=== PATIENT | male | born 1995 | race Caucasian/White ===

== ENCOUNTER 2017-04-06 21:08 | Emergency (ER) | payer OTHER ==
[~2017-04-06] VITALS: Ht 182.9 cm; Wt 116.4 kg
[2017-04-06 23:02] LABS: HEMATOCRIT 44.8 % (38.0-50.0); HEMOGLOBIN 15.3 G/DL (12.5-16.6); MCHC 34.2 G/DL (30.0-36.0); PLATELET COUNT 281 K/uL (156-360); RBC DIS.WIDTH-CV 13.2 % (11.8-14.6); RBC DIS.WIDTH-SD 40.2 % (39-53); RED BLOOD COUNT 5.27 M/uL (4.00-5.50); WHITE BLOOD COUNT 9.2 K/uL (4.1-10.2)
[2017-04-06 23:11] LABS: ALBUMIN 4.7 g/dL (3.2-4.8); CHLORIDE 110 mEq/L (99-109); POTASSIUM 3.6 mEq/L (3.7-5.4); SODIUM 140 mEq/L (136-147)
[2017-04-06 23:14] LABS: GLUCOSE 124 mg/dL (70-99); TOTAL PROTEIN 7.5 g/dL (6.4-8.3)
[2017-04-06 23:16] LABS: TOTAL BILIRUBIN 0.4 mg/dL (0.0-1.0)
[2017-04-06 23:17] LABS: ALKALINE PHOSPHATASE 54 IU/L (3-129); SERUM ETHYL ALCOHOL < 10 mg/dL
[2017-04-06 23:18] LABS: CREATININE 1.1 mg/dL (0.6-1.3); GFR ESTIMATE (CALCULATED) > 59 mL/min/ (58.99-99999)
[2017-04-06 23:19] LABS: AST (GOT) 17 IU/L (2-34); UREA NITROGEN (BUN) 9 mg/dL (9-23)
[2017-04-06 23:20] LABS: ALT (GPT) 11 IU/L (3-49)
[2017-04-07 00:21] LABS: AMPHETAMINE NEGATIVE (500 ng/mL); BARBITURATES NEGATIVE (200 ng/mL); BENZODIAZEPINES NEGATIVE (150 ng/mL); BUPRENORPHINE NEGATIVE (10 ng/mL); COCAINE NEGATIVE (150 ng/mL); METHADONE NEGATIVE (200 ng/mL); METHAMPHETAMINE NEGATIVE (500 ng/mL); OPIATES (MORPHINE) NEGATIVE (100 ng/mL); OXYCODONE NEGATIVE (100 ng/mL); PHENCYCLIDINE NEGATIVE (25 ng/mL); PROPOXYPHENE NEGATIVE (300 ng/mL); THC CANNABINOIDS NEGATIVE (50 ng/mL); TRICYCLIC ANTIDEPRESSANTS NEGATIVE (300 ng/mL)
[2017-04-07 02:28] VITALS: BP 193/103
[2017-04-07] MEDS ORDERED: RISPERDAL1 MG PO (21:43)
[2017-04-07] MEDS ORDERED: RISPERDAL2 MG PO (21:44)
[2017-04-07] MEDS ORDERED: ERGOCALCIF50000 UNIT PO (21:44)
== END 2017-04-07 02:29 | disposition home or self-care (01) ==
LOC: EME 21:08
PROVIDERS: Emergency Medicine
DX: F20.9 Schizophrenia, unspecified (principal); F29 Unspecified psychosis not due to a substance or known physiological condition; F32.9 Major depressive disorder, single episode, unspecified; F41.9 Anxiety disorder, unspecified
CPT/HCPCS: 80053; 85027; 90839; 99281; 99285; G0480

== ENCOUNTER 2017-04-07 17:23 | Emergency (ER) | payer OTHER ==
[~2017-04-07] VITALS: Ht 185.4 cm; Wt 107.1 kg
[2017-04-07] MEDS ORDERED: RISPERDAL1 MG PO (21:43)
[2017-04-07] MEDS ORDERED: RISPERDAL2 MG PO (21:44)
[2017-04-07] MEDS ORDERED: ERGOCALCIF50000 UNIT PO (21:44)
[2017-04-07 23:52] LABS: HEMATOCRIT 43.3 % (38.0-50.0); HEMOGLOBIN 14.7 G/DL (12.5-16.6); MCH 28.9 PG (29.0-34.0); MCHC 33.9 G/DL (30.0-36.0); MCV 85.1 FL (86-99); PLATELET COUNT 259 K/uL (156-360); RBC DIS.WIDTH-CV 13.1 % (11.8-14.6); RBC DIS.WIDTH-SD 40.5 % (39-53); RED BLOOD COUNT 5.09 M/uL (4.00-5.50); WHITE BLOOD COUNT 8.4 K/uL (4.1-10.2)
[2017-04-08 00:07] LABS: CHLORIDE 108 mEq/L (99-109); POTASSIUM 3.5 mEq/L (3.7-5.4); SODIUM 138 mEq/L (136-147)
[2017-04-08 00:09] LABS: GLUCOSE 111 mg/dL (70-99)
[2017-04-08 00:12] LABS: SERUM ETHYL ALCOHOL < 10 mg/dL
[2017-04-08 00:13] LABS: CREATININE 0.9 mg/dL (0.6-1.3); GFR ESTIMATE (CALCULATED) > 59 mL/min/ (58.99-99999)
[2017-04-08 00:14] LABS: UREA NITROGEN (BUN) 9 mg/dL (9-23)
[2017-04-08 00:34] LABS: AMPHETAMINE NEGATIVE (500 ng/mL); BARBITURATES NEGATIVE (200 ng/mL); BENZODIAZEPINES NEGATIVE (150 ng/mL); BUPRENORPHINE NEGATIVE (10 ng/mL); COCAINE NEGATIVE (150 ng/mL); METHADONE NEGATIVE (200 ng/mL); METHAMPHETAMINE NEGATIVE (500 ng/mL); OPIATES (MORPHINE) NEGATIVE (100 ng/mL); OXYCODONE NEGATIVE (100 ng/mL); PHENCYCLIDINE NEGATIVE (25 ng/mL); PROPOXYPHENE NEGATIVE (300 ng/mL); THC CANNABINOIDS NEGATIVE (50 ng/mL); TRICYCLIC ANTIDEPRESSANTS NEGATIVE (300 ng/mL)
[2017-04-08 15:00] VITALS: BP 159/95
== END 2017-04-08 15:02 ==
LOC: EME 17:23
PROVIDERS: Emergency Medicine Emergency Medical Services
DX: G47.00 Insomnia, unspecified (principal); R45.851 Suicidal ideations; F41.9 Anxiety disorder, unspecified; F32.9 Major depressive disorder, single episode, unspecified; F20.9 Schizophrenia, unspecified
CPT/HCPCS: 80048; 85027; 90837; G0480

== ENCOUNTER 2017-04-30 15:42 | Emergency (ER) | payer OTHER ==
[~2017-04-30] VITALS: Ht 185.4 cm; Wt 118.4 kg
[~2017-04-30 15:42] MED LIST: ERGOCALCIF50000 UNIT PO; RISPERDAL1 MG PO; RISPERDAL2 MG PO
[2017-04-30 16:18] LABS: BASOPHIL (%) 0.5 % (0-1); EOSINOPHIL (%) 1.2 % (0-5); EOSINOPHIL COUNT 0.1 K/uL (0-0.3); HEMATOCRIT 48.4 % (38.0-50.0); HEMOGLOBIN 16.5 G/DL (12.5-16.6); IMMATURE GRANULOCYTE (%) 0.7 % (0.0-0.7); LYMPHOCYTE (%) 22.9 % (15-42); LYMPHOCYTE COUNT 1.7 K/uL (1.0-2.8); MCHC 34.1 G/DL (30.0-36.0); MCV 85.1 FL (86-99); MONOCYTE (%) 9.1 % (3-12); MONOCYTE COUNT 0.7 K/uL (0-0.8); NEUTROPHIL (%) 65.6 % (45-76); NEUTROPHIL COUNT 4.9 K/uL (1.8-6.4); PLATELET COUNT 268 K/uL (156-360); RBC DIS.WIDTH-CV 12.9 % (11.8-14.6); RBC DIS.WIDTH-SD 39.8 % (39-53); RED BLOOD COUNT 5.69 M/uL (4.00-5.50); WHITE BLOOD COUNT 7.4 K/uL (4.1-10.2)
[2017-04-30] MEDS ORDERED: CHLORPROMAZINE50 MG PO (16:29)
[2017-04-30] MEDS ORDERED: CHLORPROMAZINE100 MG PO (16:29)
[2017-04-30 16:30] LABS: CHLORIDE 105 mEq/L (99-109); POTASSIUM 3.9 mEq/L (3.7-5.4); SODIUM 139 mEq/L (136-147)
[2017-04-30] MEDS ORDERED: DEPAKOTE500 MG PO (16:30)
[2017-04-30 16:31] LABS: GLUCOSE 98 mg/dL (70-99)
[2017-04-30 16:35] LABS: CREATININE 0.9 mg/dL (0.6-1.3); GFR ESTIMATE (CALCULATED) > 59 mL/min/ (58.99-99999); SERUM ETHYL ALCOHOL < 10 mg/dL
[2017-04-30 16:36] LABS: UREA NITROGEN (BUN) 8 mg/dL (9-23)
[2017-04-30 17:05] LABS: AMPHETAMINE NEGATIVE (500 ng/mL); BARBITURATES NEGATIVE (200 ng/mL); BENZODIAZEPINES NEGATIVE (150 ng/mL); BUPRENORPHINE NEGATIVE (10 ng/mL); COCAINE NEGATIVE (150 ng/mL); METHADONE NEGATIVE (200 ng/mL); METHAMPHETAMINE NEGATIVE (500 ng/mL); OPIATES (MORPHINE) NEGATIVE (100 ng/mL); OXYCODONE NEGATIVE (100 ng/mL); PHENCYCLIDINE NEGATIVE (25 ng/mL); PROPOXYPHENE NEGATIVE (300 ng/mL); THC CANNABINOIDS NEGATIVE (50 ng/mL); TRICYCLIC ANTIDEPRESSANTS NEGATIVE (300 ng/mL)
[2017-04-30 22:07] VITALS: BP 139/90
== END 2017-04-30 22:16 ==
LOC: EME 15:42
PROVIDERS: Emergency Medicine
DX: F32.9 Major depressive disorder, single episode, unspecified (principal); F20.9 Schizophrenia, unspecified; F41.9 Anxiety disorder, unspecified
CPT/HCPCS: 80048; 85025; 90837; 99281; 99285; G0480

== ENCOUNTER 2017-05-18 20:01 | Inpatient (IN) | payer OTHER ==
[~2017-05-18] VITALS: Ht 185.4 cm; Wt 120.7 kg
[~2017-05-18 20:01] MED LIST changes: +CHLORPROMAZINE100 MG PO; +CHLORPROMAZINE50 MG PO; +DEPAKOTE500 MG PO
[2017-05-18 20:45] LABS: HEMATOCRIT 44.9 % (38.0-50.0); HEMOGLOBIN 15.2 G/DL (12.5-16.6); MCHC 33.9 G/DL (30.0-36.0); MCV 85.5 FL (86-99); PLATELET COUNT 268 K/uL (156-360); RBC DIS.WIDTH-CV 12.7 % (11.8-14.6); RBC DIS.WIDTH-SD 39.6 % (39-53); RED BLOOD COUNT 5.25 M/uL (4.00-5.50); WHITE BLOOD COUNT 8.7 K/uL (4.1-10.2)
[2017-05-18 21:20] LABS: CHLORIDE 107 mEq/L (99-109); POTASSIUM 3.8 mEq/L (3.7-5.4); SODIUM 142 mEq/L (136-147)
[2017-05-18 21:22] LABS: GLUCOSE 110 mg/dL (70-99)
[2017-05-18 21:25] LABS: SERUM ETHYL ALCOHOL < 10 mg/dL
[2017-05-18 21:26] LABS: CREATININE 0.9 mg/dL (0.6-1.3); GFR ESTIMATE (CALCULATED) > 59 mL/min/ (58.99-99999)
[2017-05-18 21:28] LABS: UREA NITROGEN (BUN) 8 mg/dL (9-23)
[2017-05-18 21:29] LABS: ACETAMINOPHEN (TYLENOL) < 10 mcg/mL (10-30); SALICYLATE < 5.0 MG/DL (15-30)
[2017-05-18 23:36] LABS: VALPROIC ACID (DEPAKOTE) 121.1 MCG/ML (50-100)
[2017-05-19 00:23] LABS: ALBUMIN 4.2 g/dL (3.2-4.8)
[2017-05-19 00:26] LABS: TOTAL PROTEIN 6.4 g/dL (6.4-8.3)
[2017-05-19 00:28] LABS: TOTAL BILIRUBIN 0.2 mg/dL (0.0-1.0)
[2017-05-19 00:29] LABS: ALKALINE PHOSPHATASE 55 IU/L (3-129)
[2017-05-19 00:31] LABS: AST (GOT) 19 IU/L (2-34)
[2017-05-19 00:32] LABS: ALT (GPT) 22 IU/L (3-49); DIRECT BILIRUBIN 0.1 mg/dL (0.0-0.3)
[2017-05-19 01:40] LABS: TROP-I INTERPRETATION NEGATIVE; TROPONIN-I < 0.01 ng/mL (0.0-0.30)
[2017-05-19 01:44] LABS: ALBUMIN 3.8 G/DL (3.2-4.8); CHLORIDE 106 MEQ/L (99-109); POTASSIUM 3.8 MEQ/L (3.7-5.4); SODIUM 141 MEQ/L (136-147); TOTAL BILIRUBIN 0.2 MG/DL (0.0-1.0)
[2017-05-19 01:50] LABS: ALKALINE PHOSPHATASE 47 IU/L (3-129); ALT (GPT) 17 IU/L (3-49); AST (GOT) 16 IU/L (2-34); CREATININE 0.9 MG/DL (0.6-1.3); GFR ESTIMATE (CALCULATED) > 59 mL/min/ (58.99-99999); GLUCOSE 96 mg/dL (70-99); TOTAL PROTEIN 5.7 G/DL (6.4-8.3); UREA NITROGEN (BUN) 7 mg/dL (9-23)
[2017-05-19 03:02] LABS: AMPHETAMINE NEGATIVE (500 ng/mL); BARBITURATES NEGATIVE (200 ng/mL); BENZODIAZEPINES NEGATIVE (150 ng/mL); BUPRENORPHINE NEGATIVE (10 ng/mL); COCAINE NEGATIVE (150 ng/mL); METHADONE NEGATIVE (200 ng/mL); METHAMPHETAMINE NEGATIVE (500 ng/mL); OPIATES (MORPHINE) NEGATIVE (100 ng/mL); OXYCODONE NEGATIVE (100 ng/mL); PHENCYCLIDINE NEGATIVE (25 ng/mL); PROPOXYPHENE NEGATIVE (300 ng/mL); THC CANNABINOIDS NEGATIVE (50 ng/mL); TRICYCLIC ANTIDEPRESSANTS NEGATIVE (300 ng/mL)
[2017-05-19 04:08] VITALS: BP 140/82
[2017-05-19 08:20] VITALS: BP 136/75
[2017-05-19 15:38] VITALS: BP 138/78
[2017-05-20 08:05] VITALS: BP 107/57
[2017-05-20 16:16] VITALS: BP 130/71
[2017-05-21 07:43] VITALS: BP 120/55
[2017-05-21 15:43] VITALS: BP 136/78
[2017-05-22 07:30] VITALS: BP 125/66
[2017-05-22 15:29] VITALS: BP 151/73
[2017-05-22 17:55] VITALS: BP 144/88
[2017-05-23 11:36] VITALS: BP 134/69
[2017-05-23 15:34] VITALS: BP 133/74
[2017-05-24 07:44] VITALS: BP 102/56
[2017-05-24 15:49] VITALS: BP 143/70
[2017-05-25 07:24] VITALS: BP 110/55
[2017-05-25 15:04] VITALS: BP 147/69
[2017-05-26 07:38] VITALS: BP 116/53
[2017-05-26 15:18] VITALS: BP 146/71
[2017-05-27 07:55] VITALS: BP 116/57
[2017-05-27] MEDS ORDERED: DESYREL100 MG PO (09:08)
[2017-05-27] MEDS ORDERED: RISPERDAL2 MG PO (09:08)
[2017-05-27] MEDS ORDERED: BUPROPION XL150 MG PO (09:08)
[2017-05-27] MEDS ORDERED: ABILIFY20 MG PO (09:08)
[2017-05-27] MEDS ORDERED: ABILIFY MAINTE400 MG IM (09:10)
[2017-05-27 15:33] VITALS: BP 162/70
== END 2017-05-27 16:23 | disposition home or self-care (01) | DRG 885 ==
LOC: EME 20:01 → 1WEST 05-19 02:44 → EDOF 05-19 02:44 → ENRESERV 05-19 03:35 → 1WEST 05-19 03:52
PROVIDERS: Emergency Medicine
DX: F32.3 Major depressive disorder, single episode, severe with psychotic features (principal); F84.0 Autistic disorder; F25.1 Schizoaffective disorder, depressive type
CPT/HCPCS: 80048; 80053; 80076; 80164; 82140; 82248; 84484; 85027; 90839; 93005; 97150 GO; 97165 GO; 99202; 99281; 99285; G0480; J7030

== ENCOUNTER 2017-06-02 20:49 | Emergency (ER) | payer OTHER ==
[~2017-06-02] VITALS: Ht 185.4 cm; Wt 120.9 kg
[~2017-06-02 20:49] MED LIST changes: +ABILIFY MAINTE400 MG IM; +ABILIFY20 MG PO; +BUPROPION XL150 MG PO; +DESYREL100 MG PO
[2017-06-02 22:33] VITALS: BP 144/95
== END 2017-06-02 22:33 | disposition home or self-care (01) ==
LOC: EME 20:49
DX: F22 Delusional disorders (principal); F20.9 Schizophrenia, unspecified; F84.0 Autistic disorder
CPT/HCPCS: 80053; 80164; 85027; 90839; 99281; 99283; G0480

== ENCOUNTER 2017-06-09 11:43 | Inpatient (IN) | payer OTHER ==
[~2017-06-09] VITALS: Ht 185.4 cm; Wt 115.3 kg
[2017-06-09 12:08] LABS: BASOPHIL (%) 0.4 % (0-1); EOSINOPHIL (%) 1.3 % (0-5); EOSINOPHIL COUNT 0.1 K/uL (0-0.3); HEMATOCRIT 49.8 % (38.0-50.0); HEMOGLOBIN 16.6 G/DL (12.5-16.6); IMMATURE GRANULOCYTE (%) 0.2 % (0.0-0.7); LYMPHOCYTE (%) 33.3 % (15-42); LYMPHOCYTE COUNT 1.6 K/uL (1.0-2.8); MCH 28.9 PG (29.0-34.0); MCHC 33.3 G/DL (30.0-36.0); MCV 86.6 FL (86-99); MONOCYTE (%) 9.1 % (3-12); MONOCYTE COUNT 0.4 K/uL (0-0.8); NEUTROPHIL (%) 55.7 % (45-76); NEUTROPHIL COUNT 2.6 K/uL (1.8-6.4); PLATELET COUNT 251 K/uL (156-360); RBC DIS.WIDTH-CV 12.9 % (11.8-14.6); RBC DIS.WIDTH-SD 40.4 % (39-53); RED BLOOD COUNT 5.75 M/uL (4.00-5.50); WHITE BLOOD COUNT 4.7 K/uL (4.1-10.2)
[2017-06-09 12:17] LABS: CHLORIDE 107 mEq/L (99-109); POTASSIUM 4.6 mEq/L (3.7-5.4); SODIUM 140 mEq/L (136-147)
[2017-06-09 12:19] LABS: GLUCOSE 94 mg/dL (70-99)
[2017-06-09 12:22] LABS: SERUM ETHYL ALCOHOL < 10 mg/dL
[2017-06-09 12:23] LABS: CREATININE 1.2 mg/dL (0.6-1.3); GFR ESTIMATE (CALCULATED) > 59 mL/min/ (58.99-99999); UREA NITROGEN (BUN) 11 mg/dL (9-23)
[2017-06-09 12:26] LABS: APPEARANCE SL.HAZY ((CLEAR)); BILIRUBIN NEGATIVE; BLOOD NEGATIVE; COLOR YELLOW ((YELLOW)); GLUCOSE (STRIP) NEGATIVE; KETONES NEGATIVE; LEUKOCYTES LARGE; NITRITE NEGATIVE; PROTEIN (STRIP) 30; SPECIFIC GRAVITY 1.025 (1.000-1.030); UROBILINOGEN 0.2 MG/DL (0.2-1.0)
[2017-06-09 12:36] LABS: AMPHETAMINE NEGATIVE (500 ng/mL); BARBITURATES NEGATIVE (200 ng/mL); BENZODIAZEPINES NEGATIVE (150 ng/mL); BUPRENORPHINE NEGATIVE (10 ng/mL); COCAINE NEGATIVE (150 ng/mL); METHADONE NEGATIVE (200 ng/mL); METHAMPHETAMINE NEGATIVE (500 ng/mL); OPIATES (MORPHINE) NEGATIVE (100 ng/mL); OXYCODONE NEGATIVE (100 ng/mL); PHENCYCLIDINE NEGATIVE (25 ng/mL); PROPOXYPHENE NEGATIVE (300 ng/mL); THC CANNABINOIDS NEGATIVE (50 ng/mL); TRICYCLIC ANTIDEPRESSANTS NEGATIVE (300 ng/mL)
[2017-06-09 12:53] LABS: RED BLOOD CELLS NONE SEEN /HPF (0-5)
[2017-06-09 12:54] LABS: BACTERIA RARE /HPF; EPITHELIAL CELLS RARE /HPF; MUCUS 2+ /LPF
[2017-06-09 17:25] VITALS: BP 127/68
[2017-06-09 17:47] VITALS: BP 127/68
[2017-06-10 07:54] VITALS: BP 124/62
[2017-06-10 15:56] VITALS: BP 139/74
[2017-06-11 09:27] VITALS: BP 138/75
[2017-06-11 15:34] VITALS: BP 127/73
[2017-06-12 08:17] VITALS: BP 117/57
[2017-06-12 15:27] VITALS: BP 139/76
[2017-06-13 08:12] VITALS: BP 93/51
[2017-06-13 15:40] VITALS: BP 110/55
[2017-06-14 07:56] VITALS: BP 117/63
[2017-06-14 15:40] VITALS: BP 130/61
[2017-06-15 07:42] VITALS: BP 119/58
[2017-06-15 15:42] VITALS: BP 143/72
[2017-06-16 07:42] VITALS: BP 113/67
[2017-06-16 15:39] VITALS: BP 119/59
[2017-06-17 09:36] VITALS: BP 106/53
[2017-06-17 16:07] VITALS: BP 132/64
[2017-06-18 08:00] VITALS: BP 98/50
[2017-06-18 15:31] VITALS: BP 140/69
[2017-06-19 07:50] VITALS: BP 102/52
[2017-06-19 16:14] VITALS: BP 145/65
[2017-06-20 07:52] VITALS: BP 90/51
[2017-06-20 15:39] VITALS: BP 132/69
[2017-06-21 07:56] VITALS: BP 111/59
[2017-06-21 15:46] VITALS: BP 125/73
[2017-06-22 08:14] VITALS: BP 107/50
[2017-06-22] MEDS ORDERED: TRILEPTAL300 MG PO (09:58)
[2017-06-22] MEDS ORDERED: ZYPREXA20 MG PO (09:58)
== END 2017-06-22 16:39 | disposition home or self-care (01) | DRG 885 ==
LOC: EME 11:43 → 1WEST 15:01 → EDOF 15:01 → ENRESERV 16:00 → 1WEST 16:29
PROVIDERS: Emergency Medicine
DX: F25.0 Schizoaffective disorder, bipolar type (principal); F32.9 Major depressive disorder, single episode, unspecified; F41.9 Anxiety disorder, unspecified; F84.0 Autistic disorder; Z91.5 Personal history of self-harm
CPT/HCPCS: 80048; 81003; 85025; 87086; 90837; 97150 GO; 97165 GO; 99281; 99285; G0480

== ENCOUNTER 2017-08-08 18:25 | Emergency (ER) | payer OTHER ==
[~2017-08-08] VITALS: Ht 185.4 cm; Wt 95.4 kg
[~2017-08-08 18:25] MED LIST changes: +TRILEPTAL300 MG PO; +ZYPREXA20 MG PO
[2017-08-08 19:23] LABS: HEMATOCRIT 47.2 % (38.0-50.0); HEMOGLOBIN 16.4 G/DL (12.5-16.6); MCH 28.7 PG (29.0-34.0); MCHC 34.7 G/DL (30.0-36.0); MCV 82.7 FL (86-99); PLATELET COUNT 242 K/uL (156-360); RBC DIS.WIDTH-CV 13.1 % (11.8-14.6); RBC DIS.WIDTH-SD 39.2 % (39-53); RED BLOOD COUNT 5.71 M/uL (4.00-5.50); WHITE BLOOD COUNT 5.3 K/uL (4.1-10.2)
[2017-08-08 19:23] LABS: AMPHETAMINE NEGATIVE (500 ng/mL); BARBITURATES NEGATIVE (200 ng/mL); BENZODIAZEPINES NEGATIVE (150 ng/mL); BUPRENORPHINE NEGATIVE (10 ng/mL); COCAINE NEGATIVE (150 ng/mL); METHADONE NEGATIVE (200 ng/mL); METHAMPHETAMINE NEGATIVE (500 ng/mL); OPIATES (MORPHINE) NEGATIVE (100 ng/mL); OXYCODONE NEGATIVE (100 ng/mL); PHENCYCLIDINE NEGATIVE (25 ng/mL); PROPOXYPHENE NEGATIVE (300 ng/mL); THC CANNABINOIDS NEGATIVE (50 ng/mL); TRICYCLIC ANTIDEPRESSANTS NEGATIVE (300 ng/mL)
[2017-08-08 19:32] LABS: CHLORIDE 110 mEq/L (99-109); SODIUM 140 mEq/L (136-147)
[2017-08-08 19:34] LABS: GLUCOSE 102 mg/dL (70-99)
[2017-08-08 19:37] LABS: SERUM ETHYL ALCOHOL < 10 mg/dL
[2017-08-08 19:38] LABS: GFR ESTIMATE (CALCULATED) > 59 mL/min/ (58.99-99999)
[2017-08-08 19:39] LABS: UREA NITROGEN (BUN) 10 mg/dL (9-23)
[2017-08-08 21:40] VITALS: BP 142/90
== END 2017-08-08 21:50 | disposition home or self-care (01) ==
LOC: EME 18:25
DX: F25.0 Schizoaffective disorder, bipolar type (principal); R45.850 Homicidal ideations
CPT/HCPCS: 80048; 85027; 90837; 99281; 99284; G0480